=== PATIENT | female | born 1970 | race Caucasian/White ===

== ENCOUNTER 2021-01-30 22:07 | Emergency (ER) | payer OTHER ==
[~2021-01-30] VITALS: Ht 162.6 cm; Wt 70.3 kg
[2021-01-30 22:10] VITALS: BP 121/79; Ht 162.6 cm; Wt 70.3 kg
[2021-01-30] MEDS ORDERED: ULTRAM50 MG PO (23:21)
[2021-01-30] MEDS ORDERED: IBUPROFEN800 MG PO (23:21)
== END 2021-01-30 23:55 | disposition home or self-care (01) ==
LOC: D.ER 22:07
DX: S16.1XXA Strain of muscle, fascia and tendon at neck level, initial encounter (principal); V89.2XXA Person injured in unspecified motor-vehicle accident, traffic, initial encounter; Y93.9 Activity, unspecified; Y92.9 Unspecified place or not applicable; M54.2 Cervicalgia; R51.9 Headache, unspecified; M25.512 Pain in left shoulder; M25.511 Pain in right shoulder